=== PATIENT | male | born 1995 | race Caucasian/White ===

== ENCOUNTER 2017-07-29 19:48 | Emergency (ER) | payer BC ==
[~2017-07-29] VITALS: Ht 180.3 cm; Wt 104.3 kg
[~2017-07-29 19:48] MED LIST: CONCERTA18 M1 PO
[2017-07-29 19:55] VITALS: BP 133/73
[2017-07-29] MEDS ORDERED: AZITHROMYCIN 2250 MG PO (20:02)
[2017-07-29] MEDS ORDERED: FLONASE 0.05%50 MCG NASAL (20:02)
== END 2017-07-29 20:09 | disposition home or self-care (01) ==
LOC: M.ERS 19:48
DX: J01.00 Acute maxillary sinusitis, unspecified (principal); F90.9 Attention-deficit hyperactivity disorder, unspecified type; Z88.0 Allergy status to penicillin